=== PATIENT | male | born 1995 | race Asian ===

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

== ENCOUNTER → 2017-07-12 | Outpatient (CLI) | payer OTHER ==
[~2017-07-12] MED LIST: ZNT150 PO
--- NOTE | 2017-07-12 14:20 | DIAGNOSTIC IMAGING REPORT ---
KUB CLINICAL HISTORY: 22 years-old Male presenting with R/O STRICTURE IN SMALL BOWEL. TECHNIQUE: Single supine view of the abdomen was obtained. COMPARISON: CT from 12/14/2016 and plain radiograph from 12/13/2016. FINDINGS: Multiple radiodense curvilinear foreign bodies again project over the abdomen. No bowel obstruction. An endoscopy capsule device projects over the pelvis likely within the rectum. Allowing for bowel gas and stool, no calcifications to suggest nephrolithiasis. Osseous structures normal. Lung bases clear. IMPRESSION: 1. Capsule endoscopy device in the rectum. No bowel obstruction. Electronically signed by: Vamsi Fabian M.D. 07/12/2017 2:19 PM Dictated Date/Time: 07/12/2017 2:16 PM
--- NOTE | 2017-07-22 06:48 | CODING QUERY MEDICAL NECESSITY ---
SUPPORTING DIAGNOSIS NEEDED : 1995 A supporting diagnosis is required for the test/procedure performed on this patient in order for us to be reimbursed by the patient's insurance. Please provide a supporting diagnosis for the following test/procedure listed below next to the test name along with your signature. *If there is no additional diagnosis for this patient that would support the following test/procedure please document that below next to the test/procedure. Test(s)/Procedure(s) that require a supporting diagnosis: DOS: 07/12/17 * KUB X-RAY DIAGNOSIS: Provider Signature: Date: Thank you Narcisa Garces Health Information Management Once completed, please kindly fax back to [phone] For questions please call [phone]
== END | disposition home or self-care (01) ==
LOC: C.RAD 13:50
PROVIDERS: ATTEND Internal Medicine Gastroenterology
DX: Z87.19 Personal history of other diseases of the digestive system (principal)

== ENCOUNTER → 2017-07-26 | Day surgery (SDC) | payer OTHER ==
[~2017-07-26] VITALS: Ht 180.3 cm; Wt 67.0 kg
[~2017-07-26] MED LIST changes: +FENTANYL CITRATE INJ 50 MCG/1 ML 2 ML VIAL IV ONE; +FENTANYL CITRATE INJ 50 MCG/1 ML 2 ML VIAL ONE; +MIDAZOLAM HCL 1 MG/ML 2ML VIAL IV ONE; +MIDAZOLAM HCL 5 MG/ML 1 ML VIAL ONE; +SODIUM CHLORIDE 0.9% 500ML 500 ML IV ONE; -ZNT150 PO
[2017-07-26 10:11] VITALS: Ht 180.3 cm; Wt 67.0 kg
--- NOTE | 2017-07-26 10:55 | Endo History and Physical ---
History & Physical Date of Service: Jul 26, 2017. Chief Complaint: Epigastric abdominal pain and abnormal capsule endoscopy. Referring Physician: [facility] History of Present Illness 22 yo male who presents for push enteroscopy secondary to epigastric abdominal pain and abnormal capsule endoscopy. Past Surgical History Hx Cardiac Surgery: No Hx Internal Defibrillator: No Hx Pacemaker: No Hx Abdominal Surgery: Yes (Intussusception REPAIR A CHILD, LYSIS OF ADHESIONS (TOTAL 5 ABD. SX)) Hx of Implantable Prosthesis: No Hx Post-Op Nausea and Vomiting: No Hx Cancer Surgery: No Hx Thoracic Surgery: No Hx Orthopedic: No Hx Urinary Tract Surgery: No Family History None Social History Smoking Status: Never Smoker Hx Substance Use: No Hx Alcohol Use: No Allergies Coded Allergies: No Known Allergies (Unverified , 07/26/17) Current Medications Reported Home Medications Medications Dose Route/Sig Max Daily Dose Days Date Category No Active Prescriptions or Reported Medications Rx Vital Signs Weight (Kilograms): 67.00 Height (Feet): 5 Height (Inches): 11 Date Time Temp Pulse Resp B/P (MAP) Pulse Ox O2 Delivery O2 Flow Rate FiO2 07/26/17 10:19 36.9 94 16 140/89 (106) 100 Room Air Physical Exam General Appearance: WD/WN, no apparent distress Respiratory/Chest: Auscultation: breath sounds normal Cardiovascular: Heart Auscultation: RRR Abdomen: Bowel Sounds: normal Inspection & Palpation: soft, non-distended, no tenderness, guarding & rebound Assessment and Plan Assessment: 22 yo male who presents for push enteroscopy secondary to epigastric abdominal pain and abnormal capsule endoscopy. Plan: Proceed with push enteroscopy
--- NOTE | 2017-07-26 11:27 | Discharge Instructions ---
Endoscopy Patient Instructions Date / Procedure(s) Performed Jul 26, 2017. Colonoscopy, Push Enteroscopy, EGD Allergy Information Coded Allergies: No Known Allergies (Unverified , 07/26/17) Discharge Date / Findings Jul 26, 2017. Normal push enteroscopy with biopsies of the duodenum Medication Instructions OK to resume all medications today as prescribed Reported Home Medications Medications Dose Route/Sig Max Daily Dose Days Date Category No Active Prescriptions or Reported Medications Rx Provider Instructions Activity Restrictions - No exercising or heavy lifting for 24 hours. - Do not drink alcohol the day of the procedure. - Do not drive a car or operate machinery until the day after the procedure. - Do not make any important decisions or sign important papers in 24 hours after the procedure. Following Day: - Return to full activity which may include returning to work/school. Diet Start your diet with liquids and light foods (jello, soup, juice, toast). Then eat your usual diet if not nauseated. Treatment For Common After Affects For mild abdominal pain, bloating, or excessive gas: - Rest - Eat lightly - Lie on right side Follow-Up Information Follow-up with [facility] as scheduled Anesthesia Information What You Should Know You have had a procedure that required some medicine to reduce anxiety and discomfort. This treatment is called moderate sedation. After receiving the treatment, you may be sleepy, but you will be able to breathe on your own. The effects of the treatment may last for several hours. Follow these instructions along with Activity/Diet recommendations noted above: * Do NOT do anything where dizziness or clumsiness would be dangerous. * Rest quietly at home today, then you can be up and about tomorrow. * Have a responsible person stay with you the rest of today. * You may have had an I.V. today. If so, you may take the dressing off later today. Recommendations Call your doctor if: * Trouble breathing * Continuous vomiting for more than 24 hours * Temperature above 101 degrees * Severe abdominal pain or bloating * Pain not relieved by pain medicine ordered * There is increased drainage or redness from any incision * A large amount of rectal bleeding greater than 2-3 tablespoons. (If you had a polyp/s removed or have hemorrhoids, a small amount of blood - from the rectum is to be expected.) * You have any unanswered questions or concerns. IN THE EVENT OF A SERIOUS EMERGENCY, GO TO THE NEAREST EMERGENCY ROOM Your discharge instructions were prepared by provider Aj Bryson. Patient Instructions Signature Page Esteban Munguia Patient (or Guardian) Signature/Date: I have read and understand the instructions given to me by my caregivers. Caregiver/RN/Doctor Signature/Date: The above-named patient and/or guardian has received patient instructions on this date. + Original Patient Signature Page (only) stays with chart. Please make copy for patient.
--- NOTE | 2017-07-26 11:35 | GI REPORT ---
Procedure Date: 07/26/2017 11:03 AM THIS REPORT HAS BEEN AMENDED Addendum Number: 1 Addendum Date: 07/26/2017 12:48:13 PM Patient received nurse administered conscious sedation with split dose Versed 6 mg IV and Fentanyl 125 micrograms IV. Procedure: Upper GI endoscopy Indications: Epigastric abdominal pain, Abnormal Capsule endoscopy Medicines: Monitored Anesthesia Care Complications: No immediate complications. Estimated Blood Loss: Estimated blood loss: none. Procedure: Pre-Anesthesia Assessment: - Prior to the procedure, a History and Physical was performed, and patient medications and allergies were reviewed. The patient's tolerance of previous anesthesia was also reviewed. The risks and benefits of the procedure and the sedation options and risks were discussed with the patient. All questions were answered, and informed consent was obtained. Prior Anticoagulants: The patient has taken no previous anticoagulant or antiplatelet agents. ASA Grade Assessment: II - A patient with mild systemic disease. After reviewing the risks and benefits, the patient was deemed in satisfactory condition to undergo the procedure. After obtaining informed consent, the endoscope was passed under direct vision. Throughout the procedure, the patient's blood pressure, pulse, and oxygen saturations were monitored continuously. The scope was introduced through the mouth, and advanced to the fourth part of duodenum. The upper GI endoscopy was accomplished without difficulty. The patient tolerated the procedure well. Findings: The esophagus was normal. The stomach was normal. The fourth portion of the duodenum was normal. Biopsies were taken with a cold forceps for histology. Impression: - Normal esophagus. - Normal stomach. - Normal fourth portion of the duodenum. Biopsied. Recommendation: - Resume previous diet. - Continue present medications. - Await pathology results. - Return to primary care physician as previously scheduled. Aj RichardMaritza DO [place] 07/26/2017 11:34:59 AM This report has been signed electronically. Note Initiated On: 07/26/2017 11:03 AM I attest to the content of the Intraoperative Record and orders documented therein, exceptions below Aj Person DO [place] 07/26/2017 12:49:17 PM This report has been signed electronically.
[2017-07-26 12:07] VITALS: BP 96/64; PULSE 67; O2SAT 100
== END | disposition home or self-care (01) ==
LOC: C.GI 09:50
PROVIDERS: ATTEND Internal Medicine
DX: R10.13 Epigastric pain (principal)